=== PATIENT | female | born 1970 | race Caucasian/White ===

== ENCOUNTER 2022-09-28 16:31 | Emergency (ER) | payer MEDICAID ==
[~2022-09-28] VITALS: Ht 152.4 cm; Wt 147.4 kg
[2022-09-28 17:04] VITALS: BP 112/74
[2022-09-28 17:58] LABS: BASOPHILS % (AUTO) 0.3 % (0.0-5.0); EOSINOPHILS % (AUTO) 2.8 % (0.0-8.0); HEMATOCRIT 36.7 % (36-48); LYMPHOCYTES % (AUTO) 26.4 % (21.0-51.0); MEAN CORPUSCULAR HEMOGLOBIN 26.1 pg (27.0-33.0); MEAN CORPUSCULAR VOLUME 79.1 fL (79-99); MONOCYTES % (AUTO) 9.7 % (3.0-13.0); NEUTROPHILS % (AUTO) 60.5 % (40.0-77.0); PLATELET COUNT (AUTO) 205 K/uL (130-400); RED BLOOD CELL COUNT(AUTO) 4.64 MIL/uL (4.00-5.50); RED CELL DISTRIBUTION WIDTH 14.8 % (11.0-15.5); WHITE BLOOD COUNT (AUTO) 6.4 K/uL (4.8-10.8)
[2022-09-28 18:09] LABS: CREATININE 0.7 mg/dL (0.5-1.5); POTASSIUM 3.7 mmol/L (3.5-5.1)
[2022-09-28 18:19] LABS: ALBUMIN 3.5 g/dL (3.5-5.0); TOTAL PROTEIN, SERUM 7.1 g/dL (6.0-8.3)
[2022-09-28 18:21] LABS: APPEARANCE,URINE CLEAR (CLEAR); BILIRUBIN,URINE NEGATIVE (NEGATIVE); COLOR,URINE YELLOW (YELLOW); GLUCOSE, URINE (UA) NEGATIVE (NEGATIVE); KETONES,URINE NEGATIVE (NEGATIVE); LEUKOCYTE ESTERASE ,URINE 500 Leu/uL (NEGATIVE); NITRATE,URINE NEGATIVE (NEGATIVE); OCCULT BLOOD,URINE NEGATIVE (NEGATIVE); PH,URINE 5.5 (5.0-8.0); PROTEIN,URINE 20 mg/dL (NEGATIVE); UROBILINOGEN,URINE 0.2 mg/dL (0.2-1.0)
[2022-09-28 18:26] LABS: BACTERIA,URINE RARE /HPF (None Seen); MUCUS,URINE FEW LPF (None Seen); RBC,URINE 0-1 /HPF (0-1); SQUAMOUS EPITHELIAL CELL,UR RARE /HPF (0-2); WBC,URINE 26-50 /HPF (0-1)
[2022-09-28] MEDS ORDERED: 0.9%NACL 1000ML 1,000 ML IV SCH (18:30)
[2022-09-28] MEDS ORDERED: LEVOFLOXACIN 500 MG/D5W 100 ML 100 ML IV SCH (19:00)
[2022-09-28] MEDS ORDERED: LEVO250T75 PO (19:56)
== END 2022-09-28 22:06 | disposition home or self-care (01) ==
LOC: EDH 16:31
DX: N39.0 Urinary tract infection, site not specified (principal); E86.0 Dehydration; R53.83 Other fatigue; F17.200 Nicotine dependence, unspecified, uncomplicated; I10 Essential (primary) hypertension; Z88.0 Allergy status to penicillin; Z88.1 Allergy status to other antibiotic agents; Z88.2 Allergy status to sulfonamides
CPT/HCPCS: 99284; 96365; 96361; 82550; 84484; 80053; 85025; 87088; 81001; 36415; 93005; J1956; J7030

== ENCOUNTER 2022-10-10 00:43 | Emergency (ER) | payer MEDICAID ==
[~2022-10-10] VITALS: Ht 152 cm; Wt 147.0 kg
[~2022-10-10 00:43] MED LIST: LEVO250T75 PO
[2022-10-10 01:08] VITALS: BP 125/83
[2022-10-10] MEDS ORDERED: ALBUTEROL 0.083% 2.5 MG/3 ML INH IH ONE (02:00)
[2022-10-10] MEDS ORDERED: LEVOFLOXACIN 750 MG/D5W 150ML BAG IV ONE (02:00)
[2022-10-10] MEDS ORDERED: KETOROLAC 30MG VIAL (30MG/ML) IVP ONE (02:30)
[2022-10-10] MEDS ORDERED: FAMOTIDINE 20MG VIAL IV ONE (02:30)
[2022-10-10 02:33] LABS: BASOPHILS % (AUTO) 0.4 % (0.0-5.0); EOSINOPHILS % (AUTO) 3.2 % (0.0-8.0); HEMATOCRIT 39.1 % (36-48); MEAN CORPUSCULAR HEMOGLOBIN 25.8 pg (27.0-33.0); MEAN CORPUSCULAR HGB CONC 31.2 g/dL (32.0-36.0); MEAN CORPUSCULAR VOLUME 82.7 fL (79-99); MONOCYTES % (AUTO) 7.9 % (3.0-13.0); NEUTROPHILS % (AUTO) 66.2 % (40.0-77.0); PLATELET COUNT (AUTO) 172 K/uL (130-400); RED BLOOD CELL COUNT(AUTO) 4.73 MIL/uL (4.00-5.50); RED CELL DISTRIBUTION WIDTH 14.8 % (11.0-15.5); WHITE BLOOD COUNT (AUTO) 7.1 K/uL (4.8-10.8)
[2022-10-10 02:43] LABS: INR 0.93 (0.85-1.15); PROTHROMBIN TIME 10.7 SEC (9.6-11.6)
[2022-10-10 02:44] LABS: PARTIAL THROMBOPLASTIN TIME 26.7 SEC (26.3-35.5)
[2022-10-10 02:51] LABS: ALBUMIN 3.5 g/dL (3.5-5.0); CREATININE 0.7 mg/dL (0.5-1.5); POTASSIUM 4.4 mmol/L (3.5-5.1); TOTAL PROTEIN, SERUM 7.2 g/dL (6.0-8.3)
[2022-10-10 03:09] LABS: APPEARANCE,URINE CLEAR (CLEAR); BILIRUBIN,URINE NEGATIVE (NEGATIVE); COLOR,URINE LIGHT-YELLOW (YELLOW); GLUCOSE, URINE (UA) NEGATIVE (NEGATIVE); KETONES,URINE NEGATIVE (NEGATIVE); LEUKOCYTE ESTERASE ,URINE 250 Leu/uL (NEGATIVE); NITRATE,URINE NEGATIVE (NEGATIVE); OCCULT BLOOD,URINE NEGATIVE (NEGATIVE); PROTEIN,URINE NEGATIVE (NEGATIVE); UROBILINOGEN,URINE 0.2 mg/dL (0.2-1.0)
[2022-10-10 03:17] LABS: MUCUS,URINE RARE LPF (None Seen); SQUAMOUS EPITHELIAL CELL,UR RARE /HPF (0-2); WBC,URINE 26-50 /HPF (0-1)
[2022-10-10] MEDS ORDERED: 0.9%NACL 1000ML 1,000 ML IV ONE (04:30)
== END 2022-10-10 08:21 | disposition home or self-care (01) ==
LOC: EDH 00:43
DX: N39.0 Urinary tract infection, site not specified (principal); E11.9 Type 2 diabetes mellitus without complications; I50.9 Heart failure, unspecified; F17.200 Nicotine dependence, unspecified, uncomplicated; Z88.0 Allergy status to penicillin; Z88.2 Allergy status to sulfonamides; Z88.8 Allergy status to other drugs, medicaments and biological substances
CPT/HCPCS: 99284; 96365; 71045; 96375; 82550; 84484; 80053; 83690; 85025; 85610; 85730; 87040 ×2; 87088; 82948; 83605; 81001; 36415; 94640; J1956; J1885; S0028; J3490

== ENCOUNTER 2023-04-29 18:26 | Emergency (ER) | payer MEDICAID ==
[~2023-04-29] VITALS: Ht 175.3 cm; Wt 157.9 kg
[2023-04-29 18:36] VITALS: BP 151/87; PULSE 108; RESP 20
[2023-04-29] MEDS ORDERED: KETOROLAC 15MG/ML VIAL (15MG/ML) IM ONE (19:30)
== END 2023-04-29 20:15 | disposition home or self-care (01) ==
LOC: EDH 18:26
DX: M25.552 Pain in left hip (principal); I86.8 Varicose veins of other specified sites; E11.42 Type 2 diabetes mellitus with diabetic polyneuropathy; I50.9 Heart failure, unspecified; F17.200 Nicotine dependence, unspecified, uncomplicated; Z98.890 Other specified postprocedural states; Z88.2 Allergy status to sulfonamides; Z88.5 Allergy status to narcotic agent; Z88.8 Allergy status to other drugs, medicaments and biological substances
CPT/HCPCS: 99283; 82948; 96372; J1885

== ENCOUNTER 2023-05-18 20:44 | Emergency (ER) | payer MEDICAID ==
[~2023-05-18] VITALS: Ht 175.3 cm; Wt 157.9 kg
[2023-05-19] MEDS: ACETAMINOPHEN 500 MG TABLET PO ONE (02:02)
[2023-05-19] MEDS ORDERED: GABA-529 PO (02:41)
[2023-05-19] MEDS ORDERED: NAPR-1192 PO (02:41)
[2023-05-19 03:24] VITALS: BP 113/66; PULSE 92; RESP 20; O2SAT 96
== END 2023-05-19 04:06 | disposition home or self-care (01) ==
LOC: EDH 20:44
DX: Z76.0 Encounter for issue of repeat prescription (principal); E11.9 Type 2 diabetes mellitus without complications; F17.200 Nicotine dependence, unspecified, uncomplicated; Z88.0 Allergy status to penicillin; Z88.1 Allergy status to other antibiotic agents; Z88.2 Allergy status to sulfonamides
CPT/HCPCS: 82948

== ENCOUNTER 2023-09-06 14:54 | Emergency (ER) | payer MEDICAID ==
[~2023-09-06] VITALS: Ht 167.6 cm; Wt 113.4 kg
[~2023-09-06 14:54] MED LIST changes: +GABA-529 PO; +NAPR-1192 PO
[2023-09-06] MEDS: NYSTATIN 15 GM POWDER TP SCH (15:47)
[2023-09-06] MEDS: PHARMACY COMMUNICATION MISC SCH (15:47)
[2023-09-06] MEDS ORDERED: NYST200P MC (16:04)
[2023-09-06 16:11] VITALS: BP 158/99; PULSE 87; RESP 18; O2SAT 98
== END 2023-09-06 16:31 | disposition home or self-care (01) ==
LOC: EDH 14:54
DX: L30.4 Erythema intertrigo (principal); F17.200 Nicotine dependence, unspecified, uncomplicated; F41.9 Anxiety disorder, unspecified; F32.A Depression, unspecified; D64.9 Anemia, unspecified; Z90.49 Acquired absence of other specified parts of digestive tract; Z88.0 Allergy status to penicillin; Z88.1 Allergy status to other antibiotic agents; Z88.2 Allergy status to sulfonamides

== ENCOUNTER 2023-09-15 16:24 | Emergency (ER) | payer MEDICAID ==
[~2023-09-15] VITALS: Ht 175.3 cm; Wt 149.7 kg
[~2023-09-15 16:24] MED LIST changes: +NYST200P MC
[2023-09-15 17:21] LABS: BASOPHILS # (AUTO) 0.02 K/uL (0.00-0.20); BASOPHILS % (AUTO) 0.3 % (0.0-5.0); EOSINOPHILS # (AUTO) 0.26 K/uL (0.00-0.70); EOSINOPHILS % (AUTO) 3.6 % (0.0-8.0); HEMATOCRIT 40.8 % (36-48); IMMATURE GRANULOCYTE ABSOLUTE 0.01 K/uL (0-1); LYMPHOCYTES # (AUTO) 1.7 K/uL (1.0-4.8); LYMPHOCYTES % (AUTO) 23.2 % (21.0-51.0); MEAN CORPUSCULAR HEMOGLOBIN 26.4 pg (27.0-33.0); MEAN CORPUSCULAR HGB CONC 32.8 g/dL (32.0-36.0); MEAN CORPUSCULAR VOLUME 80.3 fL (79-99); MONOCYTES # (AUTO) 0.5 K/uL (0.1-1.0); MONOCYTES % (AUTO) 7.3 % (3.0-13.0); NEUTROPHILS # (AUTO) 4.7 K/uL (1.8-7.7); NEUTROPHILS % (AUTO) 65.5 % (40.0-77.0); PLATELET COUNT (AUTO) 246 K/uL (130-400); RED BLOOD CELL COUNT(AUTO) 5.08 MIL/uL (4.00-5.50); RED CELL DISTRIBUTION WIDTH 14.6 % (11.0-15.5); WHITE BLOOD COUNT (AUTO) 7.2 K/uL (4.8-10.8)
[2023-09-15 17:34] LABS: CREATININE 1.2 mg/dL (0.5-1.0); POTASSIUM 3.1 mmol/L (3.5-5.1)
[2023-09-15 17:42] LABS: B-TYPE NATRIURETIC PEPTIDE 34 pg/mL (0-100)
[2023-09-15 17:43] LABS: ALBUMIN 3.4 g/dL (3.5-5.0); BILIRUBIN,TOTAL 0.4 mg/dL (0.2-1.0); TOTAL PROTEIN, SERUM 7.3 g/dL (6.0-8.3)
[2023-09-15 17:56] LABS: ADD UA MICROSCOPIC YES; APPEARANCE,URINE HAZY (CLEAR); BILIRUBIN,URINE NEGATIVE (NEGATIVE); COLOR,URINE YELLOW (YELLOW); GLUCOSE, URINE (UA) NEGATIVE (NEGATIVE); KETONES,URINE 5 mg/dL (NEGATIVE); LEUKOCYTE ESTERASE ,URINE 500 Leu/uL (NEGATIVE); NITRATE,URINE 2+ (NEGATIVE); PH,URINE 5.5 (5.0-8.0); PROTEIN,URINE 50 mg/dL (NEGATIVE); UROBILINOGEN,URINE 0.2 mg/dL (0.2-1.0)
[2023-09-15 18:08] LABS: BACTERIA,URINE MANY /HPF (None Seen); MUCUS,URINE MANY LPF (None Seen); RBC,URINE 26-50 /HPF (0-1); SQUAMOUS EPITHELIAL CELL,UR MANY /HPF (0-2); WBC,URINE 51-100 /HPF (0-1)
[2023-09-15] MEDS: POTASSIUM BICARB/CIT AC 25 MEQ TABLET.EFF PO ONE (18:11)
[2023-09-15] MEDS: 0.9%NACL 1000ML 1,000 ML IV ONE (18:11)
[2023-09-15] MEDS ORDERED: CIPR-279 PO (18:43)
[2023-09-15] MEDS: CIPROFLOXACIN HCL 500 MG TABLET ONE (19:21)
[2023-09-15 19:44] VITALS: BP 138/74; PULSE 98; RESP 18; O2SAT 97
== END 2023-09-15 19:47 | disposition home or self-care (01) ==
LOC: EDH 16:24
DX: N39.0 Urinary tract infection, site not specified (principal); I11.0 Hypertensive heart disease with heart failure; I50.9 Heart failure, unspecified; E86.0 Dehydration; E87.6 Hypokalemia; J44.9 Chronic obstructive pulmonary disease, unspecified; D64.9 Anemia, unspecified; F41.9 Anxiety disorder, unspecified; F32.A Depression, unspecified; F17.200 Nicotine dependence, unspecified, uncomplicated; Z79.899 Other long term (current) drug therapy; Z98.890 Other specified postprocedural states; Z88.0 Allergy status to penicillin; Z88.2 Allergy status to sulfonamides; Z88.8 Allergy status to other drugs, medicaments and biological substances
CPT/HCPCS: 99285; 96360; 71045; 82550; 84484; 80053; 83880; 85025; 87077; 87088; 87186; 81001; 36415; 93005; J7030

== ENCOUNTER 2023-09-22 15:53 | Emergency (ER) | payer MEDICAID ==
[~2023-09-22] VITALS: Ht 175.3 cm; Wt 158.8 kg
[~2023-09-22 15:53] MED LIST changes: +CIPR-279 PO
[2023-09-22 16:39] LABS: BASOPHILS # (AUTO) 0.03 K/uL (0.00-0.20); BASOPHILS % (AUTO) 0.4 % (0.0-5.0); EOSINOPHILS # (AUTO) 0.32 K/uL (0.00-0.70); EOSINOPHILS % (AUTO) 4.6 % (0.0-8.0); HEMATOCRIT 38.8 % (36-48); IMMATURE GRANULOCYTE ABSOLUTE 0.01 K/uL (0-1); LYMPHOCYTES # (AUTO) 1.8 K/uL (1.0-4.8); LYMPHOCYTES % (AUTO) 26.3 % (21.0-51.0); MEAN CORPUSCULAR HEMOGLOBIN 25.8 pg (27.0-33.0); MEAN CORPUSCULAR HGB CONC 32.5 g/dL (32.0-36.0); MEAN CORPUSCULAR VOLUME 79.5 fL (79-99); MONOCYTES # (AUTO) 0.6 K/uL (0.1-1.0); MONOCYTES % (AUTO) 8.5 % (3.0-13.0); NEUTROPHILS # (AUTO) 4.2 K/uL (1.8-7.7); NEUTROPHILS % (AUTO) 60.1 % (40.0-77.0); PLATELET COUNT (AUTO) 246 K/uL (130-400); RED BLOOD CELL COUNT(AUTO) 4.88 MIL/uL (4.00-5.50); RED CELL DISTRIBUTION WIDTH 15.4 % (11.0-15.5)
[2023-09-22 16:58] LABS: CREATININE 0.9 mg/dL (0.5-1.0); POTASSIUM 3.7 mmol/L (3.5-5.1)
[2023-09-22 17:06] VITALS: BP 122/71; PULSE 86; RESP 18; O2SAT 99
[2023-09-22] MEDS: LACTATED RINGERS 1000ML 1,000 ML IV ONE (18:30)
== END 2023-09-22 18:49 | disposition home or self-care (01) ==
LOC: EDH 15:53
DX: N39.0 Urinary tract infection, site not specified (principal); E86.0 Dehydration; J44.9 Chronic obstructive pulmonary disease, unspecified; F17.200 Nicotine dependence, unspecified, uncomplicated; Z88.0 Allergy status to penicillin; Z88.2 Allergy status to sulfonamides; Z88.8 Allergy status to other drugs, medicaments and biological substances; Z79.899 Other long term (current) drug therapy
CPT/HCPCS: 99283; 82550; 80048; 85025; 36415 ×2; J7120

== ENCOUNTER → 2023-10-21 | Emergency (ER) | payer MEDICAID ==
[~2023-10-21] VITALS: Ht 175.3 cm; Wt 136.1 kg
[2023-10-21 12:49] VITALS: BP 134/96; PULSE 79; RESP 20
[2023-10-21] MEDS: 0.9%NACL 1000ML 1,000 ML IV ONE (13:58)
[2023-10-21 14:14] LABS: APPEARANCE,URINE CLOUDY (CLEAR); BILIRUBIN,URINE NEGATIVE (NEGATIVE); COLOR,URINE YELLOW (YELLOW); GLUCOSE, URINE (UA) NEGATIVE (NEGATIVE); KETONES,URINE NEGATIVE (NEGATIVE); LEUKOCYTE ESTERASE ,URINE 500 Leu/uL (NEGATIVE); NITRATE,URINE 2+ (NEGATIVE); OCCULT BLOOD,URINE NEGATIVE (NEGATIVE); PH,URINE 5.5 (5.0-8.0); PROTEIN,URINE 30 mg/dL (NEGATIVE); UROBILINOGEN,URINE 0.2 mg/dL (0.2-1.0)
[2023-10-21 14:32] LABS: ADD UA MICROSCOPIC YES
[2023-10-21 14:32] LABS: BASOPHILS # (AUTO) 0.03 K/uL (0.00-0.20); BASOPHILS % (AUTO) 0.4 % (0.0-5.0); HEMATOCRIT 38.3 % (36-48); IMMATURE GRANULOCYTE ABSOLUTE 0.02 K/uL (0-1); LYMPHOCYTES # (AUTO) 1.9 K/uL (1.0-4.8); LYMPHOCYTES % (AUTO) 27.7 % (21.0-51.0); MEAN CORPUSCULAR HEMOGLOBIN 25.5 pg (27.0-33.0); MEAN CORPUSCULAR HGB CONC 32.6 g/dL (32.0-36.0); MEAN CORPUSCULAR VOLUME 78.2 fL (79-99); MONOCYTES # (AUTO) 0.5 K/uL (0.1-1.0); MONOCYTES % (AUTO) 7.8 % (3.0-13.0); NEUTROPHILS # (AUTO) 4.1 K/uL (1.8-7.7); NEUTROPHILS % (AUTO) 60.8 % (40.0-77.0); PLATELET COUNT (AUTO) 257 K/uL (130-400); RED CELL DISTRIBUTION WIDTH 15.2 % (11.0-15.5); WHITE BLOOD COUNT (AUTO) 6.7 K/uL (4.8-10.8)
[2023-10-21 14:33] LABS: BACTERIA,URINE MOD /HPF (None Seen); MUCUS,URINE FEW LPF (None Seen); SQUAMOUS EPITHELIAL CELL,UR RARE /HPF (0-2); WBC,URINE 26-50 /HPF (0-1)
[2023-10-21 14:42] LABS: CREATININE 0.8 mg/dL (0.5-1.0); POTASSIUM 3.7 mmol/L (3.5-5.1)
[2023-10-21 14:48] LABS: ALBUMIN 3.8 g/dL (3.5-5.0); BILIRUBIN,TOTAL 0.5 mg/dL (0.2-1.0); TOTAL PROTEIN, SERUM 7.6 g/dL (6.0-8.3)
[2023-10-21] MEDS: CEFTRIAXONE 1G VIAL IVPB ONE (14:48)
[2023-10-21] MEDS: CEFTRIAXONE 1G VIAL ONE (14:48)
== END ==
LOC: EDH 12:28
DX: N39.0 Urinary tract infection, site not specified (principal); E66.9 Obesity, unspecified; F91.3 Oppositional defiant disorder; E11.65 Type 2 diabetes mellitus with hyperglycemia; J44.9 Chronic obstructive pulmonary disease, unspecified; F17.200 Nicotine dependence, unspecified, uncomplicated; Z79.2 Long term (current) use of antibiotics; Z79.899 Other long term (current) drug therapy; Z88.1 Allergy status to other antibiotic agents; Z88.2 Allergy status to sulfonamides; Z68.30 Body mass index [BMI] 30.0-30.9, adult
CPT/HCPCS: 99283; 96360; 80053; 85025; 87086 ×3; 87186 ×2; 82948; 82010; 81001; 36415; J7030; J0696

== ENCOUNTER 2023-10-24 18:50 | Emergency (ER) | payer MEDICAID ==
[~2023-10-24] VITALS: Ht 170.2 cm; Wt 147.4 kg
[2023-10-24 18:51] VITALS: BP 105/60; PULSE 90; RESP 20
== END 2023-10-24 19:07 | disposition home or self-care (01) ==
LOC: EDH 18:50
DX: M79.604 Pain in right leg (principal); M79.605 Pain in left leg; E11.9 Type 2 diabetes mellitus without complications; J44.9 Chronic obstructive pulmonary disease, unspecified; F17.200 Nicotine dependence, unspecified, uncomplicated; Z88.1 Allergy status to other antibiotic agents; Z88.0 Allergy status to penicillin; Z88.2 Allergy status to sulfonamides; Z79.899 Other long term (current) drug therapy

== ENCOUNTER 2023-11-25 18:46 | Emergency (ER) | payer MEDICAID ==
[~2023-11-25] VITALS: Ht 175.3 cm; Wt 145.1 kg
[2023-11-25 18:58] VITALS: BP 137/95; PULSE 95; RESP 18; O2SAT 97
[2023-11-25] MEDS: IBUPROFEN 600 MG TABLET PO ONE (20:13)
[2023-11-25] MEDS: HYDROCODONE/ACETAMINOPHEN 5/325 MG TAB PO ONE (20:29)
== END 2023-11-25 21:00 | disposition home or self-care (01) ==
LOC: EDH 18:46
DX: S83.8X2A Sprain of other specified parts of left knee, initial encounter (principal); E78.00 Pure hypercholesterolemia, unspecified; I11.0 Hypertensive heart disease with heart failure; J44.9 Chronic obstructive pulmonary disease, unspecified; F17.200 Nicotine dependence, unspecified, uncomplicated; Z88.0 Allergy status to penicillin; Z88.1 Allergy status to other antibiotic agents; Z88.2 Allergy status to sulfonamides; Z90.49 Acquired absence of other specified parts of digestive tract; Z79.899 Other long term (current) drug therapy; W01.0XXA Fall on same level from slipping, tripping and stumbling without subsequent striking against object, initial encounter; Y93.89 Activity, other specified; Y92.89 Other specified places as the place of occurrence of the external cause; Y99.8 Other external cause status
CPT/HCPCS: 73564

== ENCOUNTER → 2023-11-26 | Emergency (ER) | payer MEDICAID ==
[~2023-11-26] VITALS: Ht 175.3 cm; Wt 145.1 kg
[~2023-11-26] MED LIST changes: +acetaMINOPHEN 500 MG TABLET PO ONE
[2023-11-26 09:57] VITALS: BP 109/70; PULSE 73; RESP 18; O2SAT 98
== END ==
LOC: EDH 09:52
DX: M25.562 Pain in left knee (principal); J44.9 Chronic obstructive pulmonary disease, unspecified; I10 Essential (primary) hypertension; F17.200 Nicotine dependence, unspecified, uncomplicated; F41.9 Anxiety disorder, unspecified; Z79.899 Other long term (current) drug therapy; Z88.8 Allergy status to other drugs, medicaments and biological substances; Z90.49 Acquired absence of other specified parts of digestive tract

== ENCOUNTER 2023-12-27 03:34 | Emergency (ER) | payer MEDICAID ==
[~2023-12-27] VITALS: Ht 170.2 cm; Wt 144.7 kg
[~2023-12-27 03:34] MED LIST changes: +ALBUHFA IH; +BLOO-140 MC; +BLOO-4 MC; -CIPR-279 PO; +CYCL5TAB PO; +ERGO500093 PO; +FAMO20TA8 PO; +FAMO40TA7 PO; +FLUT1BLS15 IH; +FURO20TA4 PO; +HYDR-3421 PO; +MAG-156 PO; -NYST200P MC; +ROPI0.2535 PO; +ROSU20TA98 PO; +ROSU5TAB43 PO; +SUCR1TAB28 PO; +ZOLP5TAB8 PO; +[UNRECOGNIZED DRUG - CODE] PO; -acetaMINOPHEN 500 MG TABLET PO ONE
[2023-12-27 03:38] VITALS: BP 142/68; PULSE 92; RESP 18; TEMP 98.5
[2023-12-27] MEDS ORDERED: IBUP-2077 PO (21:02)
== END 2023-12-27 04:20 | disposition left against medical advice (07) ==
LOC: EDH 03:34
DX: M79.606 Pain in leg, unspecified (principal); Z53.21 Procedure and treatment not carried out due to patient leaving prior to being seen by health care provider

== ENCOUNTER 2023-12-27 20:02 | Emergency (ER) | payer MEDICAID ==
[~2023-12-27] VITALS: Ht 175.3 cm; Wt 171.9 kg
[~2023-12-27 20:02] MED LIST changes: +ROSU20TA73 PO; -ROSU20TA98 PO
[2023-12-27] MEDS ORDERED: IBUP-2077 PO (21:02)
[2023-12-27] MEDS: ibuPROFEN 800 MG TAB PO ONE (21:29)
[2023-12-27 21:32] VITALS: BP 121/81; PULSE 82; RESP 18; TEMP 98.8; O2SAT 97
== END 2023-12-27 21:47 | disposition home or self-care (01) ==
LOC: EDH 20:02
DX: G89.29 Other chronic pain (principal); M25.551 Pain in right hip; M16.11 Unilateral primary osteoarthritis, right hip; I25.10 Atherosclerotic heart disease of native coronary artery without angina pectoris; J44.9 Chronic obstructive pulmonary disease, unspecified; I10 Essential (primary) hypertension; E66.01 Morbid (severe) obesity due to excess calories; Z88.1 Allergy status to other antibiotic agents; Z88.2 Allergy status to sulfonamides; Z79.899 Other long term (current) drug therapy; Z68.30 Body mass index [BMI] 30.0-30.9, adult
CPT/HCPCS: 73502

== ENCOUNTER 2024-08-27 02:34 | Emergency (ER) | payer MEDICAID ==
[~2024-08-27] VITALS: Ht 172.7 cm; Wt 90.7 kg
[~2024-08-27 02:34] MED LIST changes: -CYCL5TAB PO; +CYCL5TAB3 PO; +IBUP-2077 PO; -ROSU20TA73 PO; +ROSU20TA98 PO; -ROSU5TAB43 PO; +ROSU5TAB51 PO
[2024-08-27 02:36] VITALS: BP 141/89; PULSE 90; RESP 16; TEMP 98
--- NOTE | 2024-08-27 02:53 | NUR ---
ED RN WENT INTO ROOM TO DO INTIAL ASSESSMENT AT THIS TIME. PT IS REFUSING BP CUFF AND OXYGEN PULSE OXIMETER FOR VITAL SIGN DOCUMENTATION. EDUCATION PROVIDED ABOUT THE IMPORTANCE OF VITAL SIGN MONITORING R/T TREATMENT OF CARE. PT VERBILIZED UNDERSTANDING AN IS STILL REFUSING. PT SHOWS NO SIGNS OF DISTRESS AT THIS TIME.
--- NOTE | 2024-08-27 02:55 | NUR ---
ED RN AND ED MD WENT INTO ED ROOM 9 TO DO ASSESSMENT OF PT'S REPORTED RASH. PT REFUSES TO SHOW RASH AND VOICES NOT WANTING TO BE IN THE ED. PT EDUCATED ABOUT THE IMPORTANCE OF THE PHYSICAL ASSESSMENT OF RASH FOR FUTHER TREATMENT. PT VERBILIZED UNDERSTANDING OF EDUCATION PROVIDED. PT SHOWS NO SIGNS OF DISTRESS AT THIS TIME.
--- NOTE | 2024-08-27 02:59 | NUR ---
ER PHYSICIAN SIGNED MSE FORM
--- NOTE | 2024-08-27 03:25 | NUR ---
PATIENT REFUSED ER NURSING STAFF AND ER PHYSICIAN TO EVALUATE REPORTED RASH. SECURITY CALLED TO SPEAK TO PATIENT. SECURITY SPOKE TO PATIENT. PER SECURITY, PATIENT WILL ALLOW NURSE TO SEE RASH THEN PHYSICIAN TO SEE RASH. NURSE RE-ENTERED ROOM, PATIENT REFUSED TO ALLOW NURSE TO SEE RASH BECAUSE HER DOG (WHO WAS BROUGHT WITH HER VIA EMS) WAS IN THE BED. PATIENT ORDERED NURSE TO REMOVED THE DOG FROM THE BED. DOG LEFT ON BED, NURSE WALKED OUT OF ROOM. SECURITY CALLED [employer].
--- NOTE | 2024-08-27 03:32 | NUR ---
SUPERVISOR CAB INFORMED OF SITAUTION
--- NOTE | 2024-08-27 03:58 | NUR ---
[facility] [employer] OFFICER ARRIVED.
--- NOTE | 2024-08-27 04:05 | NUR ---
PATIENT LEFT WITH [place] [employer] OFFICER
== END 2024-08-27 04:11 ==
LOC: EDH 02:34
DX: R21 Rash and other nonspecific skin eruption (principal)
CPT/HCPCS: 99283

== ENCOUNTER 2024-08-27 07:46 | Emergency (ER) | payer MEDICAID ==
[~2024-08-27] VITALS: Ht 170.2 cm; Wt 147.4 kg
[2024-08-27 07:47] VITALS: BP 145/90; PULSE 79; RESP 18; TEMP 97
--- NOTE | 2024-08-27 09:02 | NUR ---
PT ATE BREAKFAST AND SHARED WITH HER DOG
--- NOTE | 2024-08-27 09:03 | NUR ---
PT REFUSED VITAL SIGNS
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
--- NOTE | 2024-08-27 09:46 | NUR ---
0920 - PT BECAME VERBALLY THREATENING WITH DR. ANDRADE AND [facility]AL[facility], VERBALIZED TO DR. ANDRADE INSULTS AND VERBALIZED TO MARY IN SCREAMING VOICE " COME HERE BITCH, I'M GOING TO GO TO YOU AND TAKE OF YOU EVEN IF I GET IN TROUBLE WITH THE POLICE". [facility] AND [facility] BOTH CALLED POLICE. POLICE ARRIVED AND ESCORTED OUT.
== END 2024-08-27 09:51 ==
LOC: EDH 07:46
DX: F91.3 Oppositional defiant disorder (principal); R21 Rash and other nonspecific skin eruption; F17.200 Nicotine dependence, unspecified, uncomplicated; I10 Essential (primary) hypertension; I25.10 Atherosclerotic heart disease of native coronary artery without angina pectoris; J44.9 Chronic obstructive pulmonary disease, unspecified; Z79.899 Other long term (current) drug therapy; Z88.0 Allergy status to penicillin; Z88.1 Allergy status to other antibiotic agents; Z88.2 Allergy status to sulfonamides
CPT/HCPCS: 82948; 99282

== ENCOUNTER 2024-08-30 10:36 | Emergency (ER) | payer MEDICAID ==
[~2024-08-30] VITALS: Ht 180.3 cm; Wt 136.1 kg
[2024-08-30 11:14] VITALS: BP 127/73; PULSE 76; RESP 20; TEMP 98.2; O2SAT 98
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
--- NOTE | 2024-08-30 12:04 | NUR ---
BETSEY ELLISON ON SITE
--- NOTE | 2024-08-30 12:12 | NUR ---
[facility]ES JOHNSON AND PARTNER STATED THEY WILL REMOVE PT FROM HOSPITAL AREA
--- NOTE | 2024-08-30 12:19 | NUR ---
PT ESCORTED OFF PREMISES BY [facility]
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
== END 2024-08-30 12:22 ==
LOC: EDH 10:36
DX: R10.30 Lower abdominal pain, unspecified (principal); E66.01 Morbid (severe) obesity due to excess calories; F17.200 Nicotine dependence, unspecified, uncomplicated; I10 Essential (primary) hypertension; I25.10 Atherosclerotic heart disease of native coronary artery without angina pectoris; J44.9 Chronic obstructive pulmonary disease, unspecified; Z76.5 Malingerer [conscious simulation]; Z79.899 Other long term (current) drug therapy; Z68.30 Body mass index [BMI] 30.0-30.9, adult; Z88.0 Allergy status to penicillin; Z88.1 Allergy status to other antibiotic agents; Z88.2 Allergy status to sulfonamides
CPT/HCPCS: 99281; 99283

== ENCOUNTER 2024-11-23 14:45 | Emergency (ER) | payer MEDICAID ==
[~2024-11-23] VITALS: Ht 165.1 cm; Wt 127.0 kg
[2024-11-23 14:47] VITALS: BP 140/93; PULSE 97; RESP 18; TEMP 99.7
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
== END 2024-11-23 15:03 | disposition home or self-care (01) ==
LOC: EDH 14:45
DX: R25.1 Tremor, unspecified (principal); G89.29 Other chronic pain; E66.9 Obesity, unspecified; F17.200 Nicotine dependence, unspecified, uncomplicated; I10 Essential (primary) hypertension; I25.10 Atherosclerotic heart disease of native coronary artery without angina pectoris; J44.9 Chronic obstructive pulmonary disease, unspecified; Z79.899 Other long term (current) drug therapy; Z88.0 Allergy status to penicillin; Z88.1 Allergy status to other antibiotic agents; Z88.2 Allergy status to sulfonamides; Z68.42 Body mass index [BMI] 45.0-49.9, adult
CPT/HCPCS: 99283